=== PATIENT | female | born 1945 | race Caucasian/White ===

== ENCOUNTER 2017-06-26 14:47 | Outpatient (CLI) | payer MEDICARE ==
--- NOTE | 2017-06-26 15:39 | RAD ---
CHEST 2 VIEWS: Date: 06/26/17 HISTORY: Cough. FINDINGS: Cardiac silhouette is upper limits of normal in size. Pulmonary vasculature is unremarkable. Mediasti num is midline with aortic calcification. Lungs are hyperinflated with scattered areas of parenchymal scarring. Postoperative changes of the upper abdomen are evident. IMPRESSION: 1. COPD. 2. Atherosclerosis. POS: [facility]
== END 2017-06-26 14:48 | disposition home or self-care (01) ==
LOC: SCSRAD 14:47
PROVIDERS: ATTEND Family Medicine
DX: R05 Cough (principal); J44.9 Chronic obstructive pulmonary disease, unspecified; I70.0 Atherosclerosis of aorta
CPT/HCPCS: 71046

== ENCOUNTER 2018-03-22 14:01 | Outpatient (CLI) | payer MEDICARE ==
--- NOTE | 2018-03-22 16:37 | CT ---
BRAIN WITHOUT CONTRAST: History: Aphasia. FINDINGS: Comparison is made with exam of 05-09-15. No evidence of infarct, hemorrhage, midline shift, or abnormal extraaxial fluid collections are seen. The ventricular size is appropriate and the basilar cisterns are patent. The bony calvarium is intac t. No visualized paranasal sinus and mastoid air cells are well aerated. IMPRESSION: No CT evidence of acute intracranial process. POS: [facility]
== END 2018-03-22 14:02 | disposition home or self-care (01) ==
LOC: CT 14:01
PROVIDERS: ATTEND Internal Medicine Cardiovascular Disease
DX: R47.01 Aphasia (principal)
CPT/HCPCS: 70450

== ENCOUNTER 2018-05-02 10:20 | Outpatient (CLI) | payer MEDICARE ==
--- NOTE | 2018-05-02 14:02 | PET ---
PET SCAN WITH CT ATTENUATION CORRECTION: HISTORY: Frontotemporal dementia. COMPARISON: None. TECHNIQUE: PET imaging of the brain is performed after the patient was administered 8.6 mCi of [id number]. FINDINGS: There is homogeneous uptake of the radiotracer in the brain parenchyma. There is no evidence of a met abolic neurodegenerative disorder. There is no evidence of frontotemporal dementia. There is atrophy, which is age-appropriate, on the attenuation CT. IMPRESSION: Unremarkable exam. POS: [facility]
== END 2018-05-02 10:21 | disposition home or self-care (01) ==
LOC: PET 10:20
PROVIDERS: ATTEND Psychiatry & Neurology Neurology
DX: G31.09 Other frontotemporal neurocognitive disorder (principal)
CPT/HCPCS: 78608; A9552

== ENCOUNTER 2019-07-25 10:14 | Day surgery (SDC) | payer MEDICARE ==
[2019-07-24 11:15] VITALS: BMI 28.3
[2019-07-25 11:25] LABS: #Basophils 0.1 thou/uL (0.0-0.2); #Eosinphils 0.2 thou/uL (0.0-0.7); #Lymphocytes 1.2 thou/uL (1.20-3.40); #Monocytes 0.5 thou/uL (0.11-0.59); %Basophils 1.2 % (0.0-1.0); %Eosinophils 3.5 % (0.0-10.0); %Lymphocytes 17.6 % (21.0-51.0); %Monocytes 6.8 % (0.0-10.0); %Neutrophils 70.9 % (42.0-75.0); Hemoglobin 11.5 g/dL (12.0-16.0); Mean Corpuscular HGB CONC 31.7 g/dL (32.0-36.0); Mean Corpuscular Hemoglobin 27.5 pg (27.0-31.0); Mean Corpuscular Volume 86.7 fL (78.0-98.0); Mean Platelet Volume 8.5 fL (7.4-10.4); Platelet Count 211 thou/uL (130-400); RBC Distribution Width 14.6 % (11.5-14.5); Red Blood Cell (RBC) Count 4.19 mill/uL (4.20-5.40); White Blood Cell (WBC) Count 7.1 thou/uL (4.8-10.8)
[2019-07-25 11:31] LABS: INR-International Normal Ratio 1.1; PTT 34.9 SEC (22.9-36.1); Prothrombin Time 14.2 SEC (12.0-14.7)
[2019-07-25 11:52] LABS: Anion Gap 11 mmol/L (10-20); BUN (Urea Nitrogen) 14 mg/dL (9.8-20.1); Calc. Creatinine Clearance 39 mL/min (70-130); Calcium 9.1 mg/dL (7.8-10.44); Carbon Dioxide 25 mmol/L (23-31); Chloride 108 mmol/L (98-107); Estimated GFR-MDRD 35; Glucose 95 mg/dL (83-110); Sodium 140 mmol/L (136-145)
[2019-07-25] MEDS ORDERED: PROPOFOL 40 ML ONE (12:08)
--- NOTE | 2019-07-26 17:40 | ECHO ---
DATE OF SERVICE: 07/25/19 REFERRING PHYSICIAN: Dr. Adriano Cedillo REASON FOR PROCEDURE: The patient is a 73-year-old female with history of GI bleed, atrial fibrillation, status post Watchm an procedure in May [address] Vega. She is here for a six week post Watchman ANGEL. PROCEDURE: The patient received Propofol by Anesthesia specialist. After adequate level of sedation achieved, a standard transesophageal echocardiogram probe was passed into the esophagus without diff iculty. Patient tolerated the procedure well, no complications noted. RESULTS: Left atrium is moderately to severely enlarged about 5.1 cm in horizontal diameter. The left atrial appendage is well visualized with adequately seated but suboptimally sealed Watchman device noted. Jang boptimal opacification of the left atrial appendage is seen behind the Watchman device and there is f low detected possibly through the mesh work as well as mildly annular area adjacent to the device int o the left atrial appendage. Four out of four pulmonary veins were well seen without stenosis. Intera trial septum is free of defect. No residual flow detected. The mitral valve has moderate regurgitatio n. Left ventricular systolic function is preserved. Chamber size is normal. Right sided chamber is n ondilated. Mild tricuspid regurgitation. The aortic valve is without regurgitation or stenosis and th ree leaflets identified. The pulmonary valve without significant regurgitation visualized. Pericardia l space without effusion. The visualized portion of ascending and descending aorta without aneurysm, dissection and mild atheroma only. CONCLUSION: 1. Adequately seated but suboptimally sealed Watchman device in place in the left atrial appendage w ith residual leak at annular surface and possibly beyond the mesh work. 2. Moderate to severe left atrial enlargement. 3. Normal left ventricular systolic function. 4. Moderate mitral regurgitation. 5. Mild tricuspid regurgitation. PLAN: For now continue oral anticoagulation and we will send CD for review in [place] for further plans.
== END 2019-07-25 14:25 | disposition home or self-care (01) ==
LOC: CCL 10:14
PROVIDERS: ATTEND Internal Medicine Cardiovascular Disease
PROC: B246ZZ4 Ultrasonography of Right and Left Heart, Transesophageal (ICD-10-PCS; principal; 2019-07-25)
DX: I48.91 Unspecified atrial fibrillation (principal); I08.1 Rheumatic disorders of both mitral and tricuspid valves; I51.7 Cardiomegaly; Z79.01 Long term (current) use of anticoagulants; Z79.82 Long term (current) use of aspirin; Z79.899 Other long term (current) drug therapy; Z90.49 Acquired absence of other specified parts of digestive tract; Z95.5 Presence of coronary angioplasty implant and graft; Z95.818 Presence of other cardiac implants and grafts; Z98.84 Bariatric surgery status
CPT/HCPCS: 36415; 80048; 85025; 85610; 85730; 93005; 93010; 93312; J2704

== ENCOUNTER 2019-12-16 09:04 | Outpatient (CLI) | payer MEDICARE | END 2019-12-16 09:05 | disposition home or self-care (01) | LOC: BICCT 09:04 | PROVIDERS: ATTEND Internal Medicine Cardiovascular Disease | DX: I48.91 Unspecified atrial fibrillation (principal); R06.02 Shortness of breath | CPT/HCPCS: 82565 ==

== ENCOUNTER 2020-09-22 09:33 | Outpatient (CLI) | payer MEDICARE ==
[2020-09-22] MEDS ORDERED: Magnevist 469MG/ML 20 ML VIAL ONE (15:12)
== END 2020-09-22 09:34 | disposition home or self-care (01) ==
LOC: BICMRI 09:33
PROVIDERS: ATTEND Physician Assistant Medical
DX: K92.1 Melena (principal); K59.00 Constipation, unspecified; K86.89 Other specified diseases of pancreas; D64.9 Anemia, unspecified; N28.1 Cyst of kidney, acquired; K76.89 Other specified diseases of liver
CPT/HCPCS: 74183; 82565; A9579

== ENCOUNTER 2021-02-24 12:13 | Outpatient (CLI) | payer MEDICARE | END 2021-02-24 12:14 | disposition home or self-care (01) | LOC: BICMRI 12:13 | PROVIDERS: ATTEND Family Medicine | DX: R53.1 Weakness (principal); I67.82 Cerebral ischemia | CPT/HCPCS: 70553; 82565 ==